=== PATIENT | female | born 1995 | race African-American/Black ===

== ENCOUNTER 2018-06-01 15:46 | Emergency (ER) | payer SELFPAY ==
[~2018-06-01] VITALS: Ht 165.1 cm; Wt 82.0 kg
[2018-06-02] MEDS ORDERED: TETANUS, DIPHTHERIA, PERTUSSIS VAC/PF 0.5ML (>7YR OLD) IM ONE (02:00)
[2018-06-02] MEDS ORDERED: LIDOCAINE HCL 1% 20ML VIAL (Pyxis) INJ MC ONE (02:00)
[2018-06-02] MEDS ORDERED: BACITRACIN ZINC OINT UDPKT TOP ONE (02:00)
[2018-06-02] MEDS ORDERED: IBUPROFEN 600MG TABLET PO ONE (02:00)
[2018-06-02] MEDS ORDERED: LIDOCAINE HCL/PF 1% 10 MG/ML 5ML VIAL IJ SCH (02:00)
[2018-06-02 02:55] VITALS: BP 121/85
== END 2018-06-02 02:56 | disposition home or self-care (01) ==
LOC: ER 15:46
DX: S61.012A Laceration without foreign body of left thumb without damage to nail, initial encounter (principal); J45.909 Unspecified asthma, uncomplicated; F17.200 Nicotine dependence, unspecified, uncomplicated; W26.0XXA Contact with knife, initial encounter; Y93.89 Activity, other specified; Y92.9 Unspecified place or not applicable
CPT/HCPCS: 12001; 99283; J3490

== ENCOUNTER 2018-06-09 13:13 | Emergency (ER) | payer MEDICAID ==
[~2018-06-09] VITALS: Ht 165.1 cm; Wt 75.0 kg
[2018-06-09 13:52] VITALS: BP 119/90
== END 2018-06-09 15:15 | disposition home or self-care (01) ==
LOC: ER 13:13
DX: Z48.00 Encounter for change or removal of nonsurgical wound dressing (principal); J45.909 Unspecified asthma, uncomplicated
CPT/HCPCS: 99283